=== PATIENT | male | born 1945 | race Caucasian/White ===

== ENCOUNTER 2018-02-20 08:32 | Emergency (ER) | payer OTHER ==
[~2018-02-20] VITALS: Ht 182.9 cm; Wt 120.2 kg
[2018-02-20 08:38] VITALS: Ht 182.9 cm; Wt 120.2 kg
[2018-02-20 10:13] VITALS: BP 135/85
== END 2018-02-20 10:13 | disposition home or self-care (01) ==
LOC: ED 08:32
DX: S86.911A Strain of unspecified muscle(s) and tendon(s) at lower leg level, right leg, initial encounter (principal); I10 Essential (primary) hypertension; E11.9 Type 2 diabetes mellitus without complications; E78.00 Pure hypercholesterolemia, unspecified; X58.XXXA Exposure to other specified factors, initial encounter; Y93.89 Activity, other specified; Y92.89 Other specified places as the place of occurrence of the external cause; Y99.8 Other external cause status